=== PATIENT | male | born 1955 | race Caucasian/White ===

== ENCOUNTER 2022-11-07 17:11 | Emergency (ER) | payer OTHER, MEDICARE ==
[~2022-11-07] VITALS: Ht 190.5 cm; Wt 115.7 kg
[2022-11-07 17:20] VITALS: BP 149/90
== END 2022-11-07 19:49 | disposition home or self-care (01) ==
LOC: ER 17:11
DX: S62.323A Displaced fracture of shaft of third metacarpal bone, left hand, initial encounter for closed fracture (principal); W01.0XXA Fall on same level from slipping, tripping and stumbling without subsequent striking against object, initial encounter
CPT/HCPCS: 73140